=== PATIENT | female | born 1990 | race Caucasian/White ===

== ENCOUNTER 2017-11-12 13:45 | Emergency (ER) | payer MEDICAID ==
[~2017-11-12] VITALS: Ht 149.9 cm; Wt 92.5 kg
[2017-11-12 14:04] VITALS: BP 128/88; Ht 149.9 cm; Wt 92.5 kg
== END 2017-11-12 14:44 | disposition home or self-care (01) ==
LOC: ED 13:45
DX: K80.50 Calculus of bile duct without cholangitis or cholecystitis without obstruction (principal)